=== PATIENT | male | born 1995 | race Caucasian/White ===

== ENCOUNTER 2018-02-26 02:28 | Emergency (ER) | payer SELFPAY ==
[~2018-02-26] VITALS: Ht 180.3 cm; Wt 100.0 kg
[2018-02-26] MEDS ORDERED: OXYcodone/APAP 10/325MG TABLET PO ONE (03:00)
[2018-02-26] MEDS ORDERED: KETOROLAC 30 MG/1 ML IM ONE (03:00)
[2018-02-26] MEDS ORDERED: KETOROLAC 30 MG/1 ML ONE (03:07)
[2018-02-26] MEDS ORDERED: OXYcodone/APAP 10/325MG TABLET ONE (03:07)
[2018-02-26] MEDS ORDERED: LIDOCAINE-MPF 2%, 2ML ONE ×3 (03:12→03:56)
[2018-02-26 03:16] LABS: BASOPHILS # (AUTO) 0.07 x10^3/uL (0-0.1); BASOPHILS % (AUTO) 1 % (0-1); EOSINOPHILS # (AUTO) 0.25 x10^3/uL (0-0.4); EOSINOPHILS % (AUTO) 3 % (1-7); LYMPHOCYTES % (AUTO) 40 % (22-44); MD NO; MEAN CORPUSCULAR HEMOGLOBIN 29.9 pg (27.5-34.5); MEAN CORPUSCULAR HGB CONC 34.5 g/dL (33.2-36.2); MEAN CORPUSCULAR VOLUME 86.7 fL (81-97); MEAN PLATELET VOLUME 7.9 fL (7.4-10.4); MONOCYTES # (AUTO) 1.08 x10^3/uL (0.2-0.8); MONOCYTES % (AUTO) 13 % (2-9); NEUTROPHILS # (AUTO) 3.57 x10^3/uL (1.8-6.8); NEUTROPHILS % (AUTO) 43 % (42-75); PLATELET COUNT 229 x10^3/uL (130-400); RED BLOOD COUNT 4.76 x10^6/uL (4.38-5.82); RED CELL DISTRIBUTION WIDTH 13.4 % (9.4-14.8)
[2018-02-26 03:25] LABS: ALANINE AMINOTRANSFERASE 221 U/L (12-78); ALBUMIN 3.6 g/dL (3.4-5.0); ANION GAP 6 mmol/L (5-15); CALCIUM 8.2 mg/dL (8.5-10.1); CHLORIDE 111 mmol/L (98-107); CREATININE 0.91 mg/dL (0.7-1.3)
[2018-02-26 03:28] LABS: ALKALINE PHOSPHATASE 80 U/L (45-117); BILIRUBIN,TOTAL 0.6 mg/dL (0.2-1.0); TOTAL PROTEIN 6.7 g/dL (6.4-8.2)
[2018-02-26] MEDS ORDERED: LIDOCAINE 1%, 10ML INFIL ONE (03:30)
[2018-02-26] MEDS ORDERED: LIDOCAINE-MPF 2%, 2ML INFIL ONE (03:30)
[2018-02-26 03:36] LABS: MICROSCOPIC NOT IND
[2018-02-26 03:38] LABS: CULTURE INDICATED? NO
[2018-02-26] MEDS ORDERED: CEFTRIAXONE 250 MG IM ONE (04:30)
[2018-02-26] MEDS ORDERED: AZITHROMYCIN 500 MG TABLET PO ONE (04:30)
[2018-02-26 05:23] VITALS: BP 153/88
[2018-02-28] MEDS ORDERED: ALPR-475 PO (16:55)
== END 2018-02-26 05:28 | disposition home or self-care (01) ==
LOC: ED 04:16
DX: L60.0 Ingrowing nail (principal); L03.031 Cellulitis of right toe; N45.1 Epididymitis; N34.1 Nonspecific urethritis
CPT/HCPCS: 11730; 11732; 36415; 76870; 80053; 81003; 85025; 87491; 87591; 96372; 99285; J0696; J1885